=== PATIENT | female | born 1970 ===

== ENCOUNTER 2020-10-26 01:07 | Inpatient (IN) ==
[2020-10-26] MEDS ORDERED: IBUPROFEN 800 MG TABLET PO PRN (02:00)
[2020-10-26] MEDS ORDERED: ONDANSETRON 4 MG/2 ML VIAL IV SCH (02:00)
[2020-10-26] MEDS ORDERED: BISACODYL 10 MG SUPP RECTAL PRN (02:00)
[2020-10-26] MEDS ORDERED: MAGNESIUM HYDROXIDE SUSP 30 ML UDCUP PO PRN (02:00)
[2020-10-26] MEDS ORDERED: ACETAMINOPHEN 325 MG TABLET PO PRN (02:00)
[2020-10-26] MEDS ORDERED: HYDROmorphone 2 MG/1 ML VIAL IV PRN (02:00)
[2020-10-26] MEDS ORDERED: SODIUM CHLORIDE 0.9% 1,000 ML IV SCH (02:00)
[2020-10-26] MEDS: DOXYCYCLINE HYCLATE INJ 100 MG in SODIUM CHLORIDE 0.9% 100 ML IV SCH ×2 (02:41→16:58)
[2020-10-26 04:11] LABS: Basophils # 0.1 10*3/uL (0.0-0.2); Basophils % 0.5 % (0.0-0.8); Eosinophils # 0.1 10*3/uL (0.0-0.87); Eosinophils % 0.7 % (0.00-10.9); Hematocrit 38.2 VOL% (35.7-47.0); Hemoglobin 12.6 GM/DL (12.0-16.0); Immature Granulocytes % 0.6 %; Immature Granulocytes Absolute 0.08 #; Lymphocytes # 1.9 10*3/uL (1.4-4.0); Lymphocytes % 15.5 % (21.3-54.2); Mean Corpuscular Volume 88.8 FL (87-102); Mean Platelet Volume 9.8 FL (9.6-12.0); Monocytes % 6.4 % (1.7-12.7); Neutrophils % 76.3 % (38.7-73.9); Platelet Count 279 T/CUMM (130-400); Red Cell Distribution Width 14.2 % (9.3-17.3); White Blood Count 12.4 T/CUMM (4-12)
[2020-10-26] MEDS: ONDANSETRON 4 MG/2 ML VIAL IV PRN ×2 (04:35→13:52)
[2020-10-26 04:40] LABS: Bilirubin,Total 0.7 MG/DL (0.2-1.0); Calcium 8.6 MG/DL (8.5-10.1); Osmolality,Calculated 273.7 MOS/KG (273-304); Potassium 3.5 MMOL/L (3.5-5.1)
[2020-10-26 04:42] LABS: PT Patient Result 11.5 SECS (10.5-12.0)
[2020-10-26] MEDS: DOCUSATE SODIUM 100 MG CAPSULE PO SCH ×2 (09:58→20:52)
[2020-10-26] MEDS ORDERED: MEPERIDINE 50 MG/1 ML VIAL IV ONE ×2 (13:34→13:47)
[2020-10-26] MEDS ORDERED: oxyCODONE/ACETAMINOPHEN 5-325 MG TABLET PO PRN (20:33)
[2020-10-26] MEDS ORDERED: LACTATED RINGERS 1,000 ML IV SCH (21:00)
[2020-10-27] MEDS ORDERED: oxyCODONE/ACETAMINOPHEN 5-325 MG TABLET PO PRN (01:47)
[2020-10-27] MEDS: DOXYCYCLINE HYCLATE INJ 100 MG in SODIUM CHLORIDE 0.9% 100 ML IV SCH ×3 (05:06→17:35)
[2020-10-27] MEDS ORDERED: ONDANSETRON 4 MG/2 ML VIAL ONE (10:55)
[2020-10-27] MEDS ORDERED: propofoL 200 MG/20 ML VIAL IV ONE (10:55)
[2020-10-27] MEDS ORDERED: LIDOCAINE 2% 5 ML VIAL ONE (10:55)
[2020-10-27] MEDS ORDERED: DEXAMETHASONE 4 MG/1 ML VIAL ONE ×2 (10:55→13:02)
[2020-10-27] MEDS ORDERED: ROCURONIUM 50 MG/5 ML VIAL IV ONE (10:55)
[2020-10-27] MEDS ORDERED: SEVOFLURANE 1 UNIT/15 MINUTE INH ONE ×10 (10:55→14:47)
[2020-10-27] MEDS ORDERED: MIDAZOLAM 2 MG/2 ML VIAL ONE (10:57)
[2020-10-27] MEDS ORDERED: fentaNYL 100 MCG/2 ML VIAL ONE (10:58)
[2020-10-27] MEDS ORDERED: ePHEDrine 50 MG/ML VIAL ONE (13:08)
[2020-10-27] MEDS ORDERED: PHENYLEPHRINE 1 MG/10 ML SYRINGE IV ONE ×2 (13:12→14:47)
[2020-10-27] MEDS ORDERED: NEOSTIGMINE 10 MG/10 ML VIAL ONE (13:12)
[2020-10-27] MEDS ORDERED: GLYCOPYRROLATE 0.4 MG/2 ML VIAL ONE (13:12)
[2020-10-27] MEDS ORDERED: KETOROLAC 30 MG/1 ML VIAL ONE (13:13)
[2020-10-27] MEDS ORDERED: ACETAMINOPHEN INJ 1,000 MG/100 ML VIAL IV ONE (13:14)
[2020-10-27] MEDS ORDERED: LACTATED RINGERS 1,000 ML IV ONE (13:33)
[2020-10-27] MEDS: DOCUSATE SODIUM 100 MG CAPSULE PO SCH (15:53)
[2020-10-27] MEDS: ONDANSETRON 4 MG/2 ML VIAL IV PRN (16:15)
[2020-10-27] MEDS ORDERED: MEPERIDINE 50 MG/1 ML VIAL IV PRN (16:23)
[2020-10-27 17:51] VITALS: BP 114/83
== END 2020-10-27 19:15 | disposition left against medical advice (07) | DRG 743 ==
LOC: EDBD → EDUNIT# → N.ED 01:07 → N.EDINP 01:45 → N.OB 12:08
PROVIDERS: ADMIT Obstetrics & Gynecology; ATTEND Obstetrics & Gynecology

== ENCOUNTER 2020-10-29 18:42 | Observation (INO) ==
[2020-10-29] MEDS ORDERED: MORPHINE 4 MG/1 ML VIAL IV STA (21:49)
[2020-10-29] MEDS ORDERED: ONDANSETRON 4 MG/2 ML VIAL IV STA (21:52)
[2020-10-29] MEDS ORDERED: SODIUM CHLORIDE 0.9% 500 ML IV STA (22:16)
[2020-10-29 22:19] LABS: Basophils # 0.1 10*3/uL (0.0-0.2); Basophils % 0.7 % (0.0-0.8); Eosinophils # 0.3 10*3/uL (0.0-0.87); Eosinophils % 2.5 % (0.00-10.9); Hematocrit 35.5 VOL% (35.7-47.0); Hemoglobin 11.3 GM/DL (12.0-16.0); Immature Granulocytes % 0.5 %; Immature Granulocytes Absolute 0.06 #; Lymphocytes # 2.9 10*3/uL (1.4-4.0); Lymphocytes % 22.3 % (21.3-54.2); Mean Corpuscular HGB Conc 31.8 GM/DL (32-36); Mean Corpuscular Volume 90.8 FL (87-102); Mean Platelet Volume 9.5 FL (9.6-12.0); Monocytes % 6.6 % (1.7-12.7); Neutrophils % 67.4 % (38.7-73.9); Platelet Count 375 T/CUMM (130-400); Red Blood Count 3.91 MC/CUMM (3.8-5.5); Red Cell Distribution Width 14.2 % (9.3-17.3)
[2020-10-29 22:23] LABS: Bilirubin,Urine Negative (Negative); Blood, Urine Negative (Negative); Glucose,Urine (UA) Negative (Negative); Ketones,Urine Negative (Negative); Mucus,Urine Occasional /LPF (Occasional); Nitrite,Urine Negative (Negative); Protein,Urine Negative; RBC,Urine 1 /HPF (0-4); Squamous Epithelial Cell,Urine Occasional /HPF (0-10); Urine Appearance Slightly Hazy (Clear); Urine Color Yellow (Yellow); Urine Specific Gravity 1.011 (1.001-1.035); Urine Urobilinogen < 2.0 EU/DL (0.2-1.0)
[2020-10-29 22:35] LABS: Albumin 2.7 G/DL (3.4-5.0); Bilirubin,Total 0.4 MG/DL (0.2-1.0); Calcium 8.5 MG/DL (8.5-10.1); Osmolality,Calculated 275.3 MOS/KG (273-304); Potassium 3.3 MMOL/L (3.5-5.1); Total Protein 6.8 G/DL (6.4-8.2)
[2020-10-30] MEDS ORDERED: ONDANSETRON 4 MG/2 ML VIAL IV STA (01:39)
[2020-10-30] MEDS ORDERED: MORPHINE 4 MG/1 ML VIAL IV STA (01:39)
[2020-10-30] MEDS ORDERED: BISACODYL 10 MG SUPP RECTAL PRN (03:14)
[2020-10-30] MEDS: DOXYCYCLINE HYCLATE INJ 100 MG in SODIUM CHLORIDE 0.9% 100 ML IV SCH ×2 (06:05→17:35)
[2020-10-30] MEDS: POTASSIUM CHLORIDE 20 MEQ TABLET PO PRN ×3 (06:58→10:52)
[2020-10-30] MEDS: oxyCODONE/ACETAMINOPHEN 5-325 MG TABLET PO PRN ×2 (08:04→19:36)
[2020-10-30] MEDS: IBUPROFEN 800 MG TABLET PO PRN (08:04)
[2020-10-30] MEDS: MAGNESIUM HYDROXIDE SUSP 30 ML UDCUP PO PRN ×2 (08:56→19:36)
[2020-10-30] MEDS: DOCUSATE SODIUM 100 MG CAPSULE PO SCH ×3 (08:56→20:51)
[2020-10-30] MEDS ORDERED: DOCUSATE SODIUM 100 MG/10 ML UDCUP PO SCH (09:00)
[2020-10-30 13:42] LABS: Basophils # 0.1 10*3/uL (0.0-0.2); Basophils % 0.7 % (0.0-0.8); Eosinophils # 0.3 10*3/uL (0.0-0.87); Eosinophils % 3.2 % (0.00-10.9); Hematocrit 32.2 VOL% (35.7-47.0); Hemoglobin 10.7 GM/DL (12.0-16.0); Immature Granulocytes % 0.4 %; Immature Granulocytes Absolute 0.04 #; Lymphocytes # 2.3 10*3/uL (1.4-4.0); Mean Corpuscular HGB Conc 33.2 GM/DL (32-36); Mean Corpuscular Volume 89.7 FL (87-102); Mean Platelet Volume 9.5 FL (9.6-12.0); Neutrophils % 66.7 % (38.7-73.9); Platelet Count 337 T/CUMM (130-400); Red Blood Count 3.59 MC/CUMM (3.8-5.5); White Blood Count 10.5 T/CUMM (4-12)
[2020-10-30 14:32] LABS: Band Neutrophils 1 % (0-10); Eosinophils 5 % (0-10); Segmented Neutrophils 64 % (50-85)
[2020-10-30 14:36] LABS: Lymphocytes 28 % (20-55)
[2020-10-30 14:37] LABS: Atypical Lymphocytes Few; Hypochromasia 1+; Microcytosis 1+; Reactive Lymphocytes Few; Total Cells Counted 100
[2020-10-30 14:38] LABS: Platelet Estimate Increased
[2020-10-31] MEDS: DOXYCYCLINE HYCLATE INJ 100 MG in SODIUM CHLORIDE 0.9% 100 ML IV SCH ×2 (05:50→16:43)
[2020-10-31] MEDS: DOCUSATE SODIUM 100 MG CAPSULE PO SCH ×2 (07:59→21:13)
[2020-10-31] MEDS: oxyCODONE/ACETAMINOPHEN 5-325 MG TABLET PO PRN ×2 (07:59→16:42)
[2020-10-31] MEDS ORDERED: MAGNESIUM CITRATE 300 ML BOTTLE PO ONE (08:03)
[2020-10-31] MEDS ORDERED: SODIUM PHOSPHATE ENEMA 133 ML BOTTLE RECTAL ONE (13:06)
[2020-10-31] MEDS: MAGNESIUM HYDROXIDE SUSP 30 ML UDCUP PO PRN (13:18)
[2020-10-31] MEDS: IBUPROFEN 800 MG TABLET PO PRN (16:42)
[2020-10-31] MEDS ORDERED: FLUCONAZOLE 100 MG TABLET PO SCH (21:00)
[2020-11-01] MEDS: DOXYCYCLINE HYCLATE INJ 100 MG in SODIUM CHLORIDE 0.9% 100 ML IV SCH (04:33)
[2020-11-01 06:47] LABS: Basophils # 0.1 10*3/uL (0.0-0.2); Basophils % 0.6 % (0.0-0.8); Eosinophils # 0.4 10*3/uL (0.0-0.87); Eosinophils % 3.5 % (0.00-10.9); Hematocrit 35.6 VOL% (35.7-47.0); Hemoglobin 11.1 GM/DL (12.0-16.0); Immature Granulocytes % 0.7 %; Immature Granulocytes Absolute 0.08 #; Lymphocytes # 2.5 10*3/uL (1.4-4.0); Lymphocytes % 21.8 % (21.3-54.2); Mean Corpuscular HGB Conc 31.2 GM/DL (32-36); Mean Corpuscular Volume 91.8 FL (87-102); Mean Platelet Volume 9.3 FL (9.6-12.0); Monocytes % 6.8 % (1.7-12.7); Neutrophils % 66.6 % (38.7-73.9); Platelet Count 404 T/CUMM (130-400); Red Blood Count 3.88 MC/CUMM (3.8-5.5); White Blood Count 11.3 T/CUMM (4-12)
[2020-11-01 07:04] LABS: Eosinophils 6 % (0-10); Hypochromasia 1+; Lymphocytes 17 % (20-55); Microcytosis 1+; Platelet Estimate Adequate; Segmented Neutrophils 71 % (50-85); Total Cells Counted 100
[2020-11-01] MEDS ORDERED: DOXYCYCLINE HYCLATE 100 MG CAPSULE PO SCH (09:00)
[2020-11-01] MEDS ORDERED: CEFDINIR 300 MG CAPSULE PO SCH (09:00)
[2020-11-01 09:10] VITALS: BP 140/91
== END 2020-11-01 08:58 | disposition home or self-care (01) ==
LOC: N.EDINP 18:42 → N.ED 18:42 → N.OB 10-30 03:40
PROVIDERS: ADMIT Obstetrics & Gynecology; ATTEND Obstetrics & Gynecology